=== PATIENT | female | born 1975 | race Two or more races ===

== ENCOUNTER 2017-10-21 21:06 | Inpatient (IN) | payer MEDICAID ==
[~2017-10-21] VITALS: Ht 162.6 cm; Wt 125.1 kg
[2017-10-21] MEDS ORDERED: IPRATROPIUM BROM 0.5 MG/2.5ML INH SOL NEB ONE (21:30)
[2017-10-21] MEDS ORDERED: NIFEdipine 10 MG CAP PO ONE (21:30)
[2017-10-21] MEDS ORDERED: ALBUTEROL SULF 2.5 MG/0.5ML(0.5%) NEB SOLN NEB ONE (21:30)
[2017-10-21] MEDS ORDERED: NIFEdipine 10 MG CAP ONE (21:31)
[2017-10-21 22:11] LABS: Basophils # (auto) 0.1 uL; Basophils % (auto) 0.6 % (0.0-2.0); Eosinophils # (auto) 0.2 uL; Eosinophils % (auto) 2.7 % (0.0-7.0); Hemoglobin 10.6 g/dL (12.2-16.2); Lymphocytes # (auto) 1.8 uL; Mean Corpuscular Hemoglobin 27.4 pg (28.0-32.0); Mean Corpuscular Hgb Conc. 32.2 g/dL (32.0-36.0); Mean Corpuscular Volume 85.1 fL (80.0-100.0); Monocytes # (auto) 0.5 uL; Monocytes % (auto) 5.6 % (0.0-12.0); Neutrophils # (auto) 6.1 uL; Neutrophils % (auto) 70.1 % (37.0-80.0); Nucleated Red Blood Cells % 0.1 %; Platelet Count (auto) 241 10^3/uL (140-450); Red Blood Cells 3.88 10^6/uL (4.0-5.20); Red Cell Distribution Width 16.3 % (11.8-14.3); White Blood Cell 8.7 10^3/uL (4.4-10.8)
[2017-10-21 22:26] LABS: Urine Bacteria FEW /hpf (None Seen); Urine Blood 1+ /uL (Negative); Urine Mucus FEW (None Seen); Urine Specific Gravity 1.023 (1.001-1.035); Urine WBC 2 /hpf (0 - 5)
[2017-10-21 22:29] LABS: Alanine Aminotransferase 45 U/L (13-56); Albumin 3.9 g/dL (3.4-5.0); Anion Gap 9 (5-15); Aspartate Aminotransferase 32 U/L (15-37); BUN/Creatinine Ratio 12.6; Blood Urea Nitrogen 16 mg/dL (7-18); Calcium 8.6 mg/dL (8.5-10.1); Carbon Dioxide 26 mmol/L (21-32); Chloride 108 mmol/L (98-107); GFR African American 59 mL/min; GFR Non-African American 49 mL/min; Glucose 99 mg/dL (74-106); Magnesium 2.1 mg/dL (1.6-2.6); Potassium 4.1 mmol/L (3.5-5.1); Sodium 143 mmol/L (136-145)
[2017-10-21 22:34] LABS: Alkaline Phosphatase 122 U/L (45-117); Bilirubin, Total 0.6 mg/dL (0.2-1.0)
[2017-10-22] MEDS ORDERED: PIPERACILLIN-TAZO 4.5GM 50 ML IV ONE (01:30)
[2017-10-22] MEDS ORDERED: SODIUM CHLORIDE 0.9% 1,000 ML IV ONE (01:30)
[2017-10-22] MEDS ORDERED: HYDROcodone-ACET 10/325MG TAB PO ONE (01:45)
[2017-10-22] MEDS ORDERED: NITROGLYCERIN 0.4 MG SL TAB SL PRN (03:00)
[2017-10-22] MEDS ORDERED: AZITHROMYCIN 500MG/ 250ML 250 ML IV ONE (03:00)
[2017-10-22] MEDS ORDERED: methylPREDNISolone SOD SUCC 125 MG/2 ML VL IV ONE (03:00)
[2017-10-22] MEDS ORDERED: MORPHINE SULFATE 4 MG/ML SYR/VIAL IV PRN ×2 (03:00→23:45)
[2017-10-22] MEDS ORDERED: METOPROLOL TARTRATE 25 MG TAB PO ONE (03:00)
[2017-10-22] MEDS ORDERED: TEMAZEPAM 15 MG CAP PO PRN (03:00)
[2017-10-22] MEDS ORDERED: diphenhdrAMINE HCL 50 MG/1 ML VL IV PRN (03:45)
[2017-10-22] MEDS ORDERED: diphenhdrAMINE HCL 50 MG/1 ML VL ONE (03:48)
[2017-10-22] MEDS: ALBUTEROL SULF 2.5 MG/0.5ML(0.5%) NEB SOLN NEB PRN ×3 (04:06→19:51)
[2017-10-22] MEDS: IPRATROPIUM BROM 0.5 MG/2.5ML INH SOL NEB PRN ×3 (04:07→19:51)
[2017-10-22] MEDS: ONDANSETRON HCL 4 MG/2 ML VIAL IV PRN ×3 (05:22→22:04)
[2017-10-22 05:32] LABS: Calcium 8.1 mg/dL (8.5-10.1); Potassium 3.6 mmol/L (3.5-5.1)
[2017-10-22 05:35] LABS: BUN/Creatinine Ratio 13.7
[2017-10-22] MEDS ORDERED: IOHEXOL 350 MG/ML 100ML IJ ONE (06:02)
[2017-10-22] MEDS: GABAPENTIN 300 MG CAP PO SCH ×3 (06:06→22:02)
[2017-10-22 07:22] VITALS: BP 146/89
[2017-10-22] MEDS: HYDROcodone-ACET 5/325MG TAB PO PRN ×2 (07:58→20:32)
[2017-10-22] MEDS: cefTRIAXone 1GM/10ml IVPUSH 10 ML IV SCH (09:00)
[2017-10-22] MEDS: ASPirin 81 mg TAB PO SCH (10:12)
[2017-10-22] MEDS: FAMOTIDINE 20 MG TAB PO SCH ×2 (10:12→22:03)
[2017-10-22] MEDS: ENOXAPARIN SOD 40 MG/0.4 ML SYRINGE SC SCH (10:12)
[2017-10-22] MEDS: METOPROLOL TARTRATE 25 MG TAB PO SCH ×2 (10:12→22:03)
[2017-10-22 17:21] VITALS: BP 141/86
[2017-10-22 18:22] VITALS: BP 141/86
[2017-10-22] MEDS: ATORVASTATIN 20 MG TAB PO SCH (22:02)
[2017-10-22] MEDS: AZITHROMYCIN 500MG/ 250ML 250 ML IV SCH (22:05)
[2017-10-22 22:36] VITALS: BP 133/79
[2017-10-22] MEDS ORDERED: GABA300C10 PO (23:00)
[2017-10-22] MEDS ORDERED: TEMA15CA91 PO (23:00)
[2017-10-22] MEDS ORDERED: ASPI-498 OR (23:00)
[2017-10-22] MEDS ORDERED: ATOR20TA50 PO (23:00)
[2017-10-22] MEDS ORDERED: HYDR-4683 PO (23:00)
[2017-10-22] MEDS ORDERED: NAP500T PO (23:00)
[2017-10-22] MEDS ORDERED: CYCL1TAB18 PO (23:00)
[2017-10-22] MEDS ORDERED: SERT-135 PO (23:23)
[2017-10-23] VITALS (42 sets, daily range): BP systolic 87–148; BP diastolic 44–79
[2017-10-23] MEDS: ALBUTEROL SULF 2.5 MG/0.5ML(0.5%) NEB SOLN NEB PRN ×4 (03:41→22:29)
[2017-10-23] MEDS: IPRATROPIUM BROM 0.5 MG/2.5ML INH SOL NEB PRN ×4 (03:41→22:29)
[2017-10-23] MEDS: GABAPENTIN 300 MG CAP PO SCH ×3 (05:34→22:27)
[2017-10-23 06:03] LABS: Basophils # (auto) 0 uL; Basophils % (auto) 0.1 % (0.0-2.0); Eosinophils # (auto) 0 uL; Hematocrit 28.8 % (36.0-46.0); Hemoglobin 9.3 g/dL (12.2-16.2); Lymphocytes # (auto) 1.3 uL; Lymphocytes % (auto) 9.9 % (10.0-50.0); Mean Corpuscular Hemoglobin 27.7 pg (28.0-32.0); Mean Corpuscular Hgb Conc. 32.3 g/dL (32.0-36.0); Mean Corpuscular Volume 85.8 fL (80.0-100.0); Monocytes # (auto) 0.9 uL; Monocytes % (auto) 6.9 % (0.0-12.0); Neutrophils # (auto) 10.9 uL; Neutrophils % (auto) 83.1 % (37.0-80.0); Platelet Count (auto) 217 10^3/uL (140-450); Red Blood Cells 3.36 10^6/uL (4.0-5.20); Red Cell Distribution Width 16.5 % (11.8-14.3); White Blood Cell 13.1 10^3/uL (4.4-10.8)
[2017-10-23 06:26] LABS: Albumin 3.4 g/dL (3.4-5.0); BUN/Creatinine Ratio 17.6; Bilirubin, Total 0.5 mg/dL (0.2-1.0); Calcium 8.3 mg/dL (8.5-10.1); Potassium 4.3 mmol/L (3.5-5.1); Total Protein 7.1 g/dL (6.4-8.2)
[2017-10-23] MEDS: cefTRIAXone 1GM/10ml IVPUSH 10 ML IV SCH (09:05)
[2017-10-23] MEDS: METOPROLOL TARTRATE 25 MG TAB PO SCH ×3 (09:33→22:27)
[2017-10-23] MEDS: ASPirin 81 mg TAB PO SCH (09:33)
[2017-10-23] MEDS: FAMOTIDINE 20 MG TAB PO SCH ×2 (09:34→22:28)
[2017-10-23] MEDS: HYDROcodone-ACET 5/325MG TAB PO PRN (09:34)
[2017-10-23] MEDS: ENOXAPARIN SOD 40 MG/0.4 ML SYRINGE SC SCH (09:35)
[2017-10-23] MEDS ORDERED: ENOXAPARIN SOD 150 MG/1 ML SYRINGE SC ONE (12:15)
[2017-10-23] MEDS ORDERED: ENOXAPARIN SOD 100 MG/1 ML SYRINGE SC ONE (12:30)
[2017-10-23] MEDS ORDERED: ALBUTEROL SULF 2.5 MG/0.5ML(0.5%) NEB SOLN ONE (15:29)
[2017-10-23] MEDS ORDERED: PROPOFOL 100 ML IV ONE (15:41)
[2017-10-23] MEDS ORDERED: MIDAZOLAM DRIP 50 mg/50mL 50 ML IV ONE (16:01)
[2017-10-23] MEDS ORDERED: FUROSEMIDE 40 MG/4 ML VIAL IV ONE (16:15)
[2017-10-23] MEDS ORDERED: FUROSEMIDE 40 MG/4 ML VIAL ONE (16:33)
[2017-10-23] MEDS: PROPOFOL 100 ML IV SCH ×2 (17:16→22:32)
[2017-10-23] MEDS: MIDAZOLAM DRIP 50 mg/50mL 50 ML IV SCH (17:17)
[2017-10-23 17:32] LABS: Urine Bacteria NONE SEEN /hpf (None Seen); Urine Blood TRACE /uL (Negative); Urine Mucus FEW (None Seen); Urine Specific Gravity 1.018 (1.001-1.035); Urine WBC 1 /hpf (0 - 5)
[2017-10-23] MEDS ORDERED: VANCOMYCIN PER PHARMACY 0 MG IV SCH (18:30)
[2017-10-23] MEDS: fentaNYL Drip 2500mCg/250mlNS 250 ML IV SCH (18:33)
[2017-10-23] MEDS ORDERED: TOBRAMYCIN PER PHARMACY 0 ML IV SCH (19:15)
[2017-10-23] MEDS ORDERED: MEROPENEM 1gm/20ml IVPUSH 20 ML IV SCH (22:00)
[2017-10-23] MEDS ORDERED: methylPREDNISolone SOD SUCC 40 MG/ML VL IV SCH (22:00)
[2017-10-23] MEDS: MEROPENEM 1gm/20ml IVPUSH 20 ML IV SCH (22:26)
[2017-10-23] MEDS: AZITHROMYCIN 500MG/ 250ML 250 ML IV SCH (22:26)
[2017-10-23] MEDS: VANCOMYCIN 1,500 MG in D5W 5% 250 ML IV SCH (22:27)
[2017-10-23] MEDS: ATORVASTATIN 20 MG TAB PO SCH (22:27)
[2017-10-23] MEDS: SERTRALINE HCL 50 MG TAB PO SCH (22:28)
[2017-10-24] VITALS (104 sets, daily range): BP systolic 81–177; BP diastolic 41–94
[2017-10-24] MEDS: PROPOFOL 100 ML IV SCH ×6 (00:10→21:17)
[2017-10-24] MEDS: MIDAZOLAM DRIP 50 mg/50mL 50 ML IV SCH ×6 (00:11→23:38)
[2017-10-24] MEDS: D5W 5% IV SCH (00:35)
[2017-10-24] MEDS: TOBRAMYCIN IV SCH (00:35)
[2017-10-24] MEDS: NOREPINEPHRINE 8 MG/250ML KIT 250 ML IV SCH (00:36)
[2017-10-24] MEDS: IPRATROPIUM BROM 0.5 MG/2.5ML INH SOL NEB PRN ×3 (02:19→23:58)
[2017-10-24] MEDS: ALBUTEROL SULF 2.5 MG/0.5ML(0.5%) NEB SOLN NEB PRN ×3 (02:19→23:58)
[2017-10-24 03:56] LABS: Basophils # (auto) 0 uL; Basophils % (auto) 0.4 % (0.0-2.0); Eosinophils # (auto) 0.3 uL; Eosinophils % (auto) 3.4 % (0.0-7.0); Hematocrit 27.7 % (36.0-46.0); Hemoglobin 8.9 g/dL (12.2-16.2); Lymphocytes # (auto) 1.8 uL; Lymphocytes % (auto) 17.9 % (10.0-50.0); Mean Corpuscular Hemoglobin 27.6 pg (28.0-32.0); Mean Corpuscular Hgb Conc. 32.2 g/dL (32.0-36.0); Mean Corpuscular Volume 85.8 fL (80.0-100.0); Monocytes # (auto) 0.4 uL; Monocytes % (auto) 4.3 % (0.0-12.0); Neutrophils # (auto) 7.5 uL; Nucleated Red Blood Cells % 0.1 %; Platelet Count (auto) 164 10^3/uL (140-450); Red Blood Cells 3.23 10^6/uL (4.0-5.20); White Blood Cell 10.1 10^3/uL (4.4-10.8)
[2017-10-24 04:32] LABS: Albumin 3.1 g/dL (3.4-5.0); BUN/Creatinine Ratio 17.4; Bilirubin, Total 0.9 mg/dL (0.2-1.0); Calcium 7.6 mg/dL (8.5-10.1); Potassium 3.8 mmol/L (3.5-5.1); Total Protein 6.8 g/dL (6.4-8.2)
[2017-10-24] MEDS: MEROPENEM 1gm/20ml IVPUSH 20 ML IV SCH ×3 (05:08→21:15)
[2017-10-24] MEDS: GABAPENTIN 300 MG CAP PO SCH ×3 (06:32→21:16)
[2017-10-24] MEDS: ENOXAPARIN SOD 40 MG/0.4 ML SYRINGE SC SCH (10:00)
[2017-10-24] MEDS: FAMOTIDINE 20 MG TAB PO SCH ×2 (10:00→21:16)
[2017-10-24] MEDS: ASPirin 81 mg TAB PO SCH (10:00)
[2017-10-24] MEDS ORDERED: Nutren 1.0/Fiber 8 ounces NG SCH (10:00)
[2017-10-24] MEDS: METOPROLOL TARTRATE 25 MG TAB PO SCH ×2 (10:00→21:15)
[2017-10-24] MEDS: VANCOMYCIN 1,500 MG in D5W 5% 250 ML IV SCH (12:00)
[2017-10-24] MEDS ORDERED: Nutren Pulmonary 1 Liter GT SCH (12:30)
[2017-10-24] MEDS: fentaNYL Drip 2500mCg/250mlNS 250 ML IV SCH (16:39)
[2017-10-24] MEDS: FREE WATER GT SCH (18:00)
[2017-10-24] MEDS: AZITHROMYCIN 500MG/ 250ML 250 ML IV SCH (18:41)
[2017-10-24] MEDS: ATORVASTATIN 20 MG TAB PO SCH (21:15)
[2017-10-24] MEDS: SERTRALINE HCL 50 MG TAB PO SCH (21:16)
[2017-10-25] VITALS (87 sets, daily range): BP systolic 93–134; BP diastolic 48–84
[2017-10-25] MEDS: FREE WATER GT SCH ×4 (01:02→18:00)
[2017-10-25] MEDS: TOBRAMYCIN IV SCH (01:03)
[2017-10-25] MEDS: D5W 5% IV SCH (01:03)
[2017-10-25] MEDS: PROPOFOL 100 ML IV SCH ×5 (02:06→19:47)
[2017-10-25] MEDS: NOREPINEPHRINE 8 MG/250ML KIT 250 ML IV SCH (02:06)
[2017-10-25 03:47] LABS: Basophils # (auto) 0 uL; Basophils % (auto) 0.4 % (0.0-2.0); Eosinophils # (auto) 0.8 uL; Eosinophils % (auto) 6.2 % (0.0-7.0); Hematocrit 26.2 % (36.0-46.0); Hemoglobin 8.5 g/dL (12.2-16.2); Lymphocytes # (auto) 1.9 uL; Lymphocytes % (auto) 15.8 % (10.0-50.0); Mean Corpuscular Hemoglobin 27.3 pg (28.0-32.0); Mean Corpuscular Hgb Conc. 32.6 g/dL (32.0-36.0); Mean Corpuscular Volume 83.7 fL (80.0-100.0); Monocytes # (auto) 0.4 uL; Monocytes % (auto) 3.5 % (0.0-12.0); Neutrophils % (auto) 74.1 % (37.0-80.0); Platelet Count (auto) 158 10^3/uL (140-450); Red Blood Cells 3.13 10^6/uL (4.0-5.20); Red Cell Distribution Width 16.4 % (11.8-14.3); White Blood Cell 12.2 10^3/uL (4.4-10.8)
[2017-10-25 03:52] LABS: Albumin 2.8 g/dL (3.4-5.0); BUN/Creatinine Ratio 14.5; Potassium 3.5 mmol/L (3.5-5.1)
[2017-10-25 03:55] LABS: Bilirubin, Total 1.4 mg/dL (0.2-1.0); Total Protein 6.7 g/dL (6.4-8.2)
[2017-10-25] MEDS: MIDAZOLAM DRIP 50 mg/50mL 50 ML IV SCH ×3 (06:28→16:43)
[2017-10-25] MEDS: MEROPENEM 1gm/20ml IVPUSH 20 ML IV SCH ×3 (06:31→22:08)
[2017-10-25] MEDS: GABAPENTIN 300 MG CAP PO SCH ×3 (06:31→22:09)
[2017-10-25] MEDS: ACETAMINOPHEN 325 MG TAB PO PRN (06:33)
[2017-10-25] MEDS ORDERED: VANCOMYCIN 1,500 MG in D5W 5% 250 ML IV SCH (10:00)
[2017-10-25] MEDS ORDERED: FUROSEMIDE 40 MG/4 ML VIAL IV ONE (10:30)
[2017-10-25] MEDS ORDERED: TPN PER PHARMACY 0 ML IV SCH (10:45)
[2017-10-25] MEDS ORDERED: SODIUM BICARBONATE 8.4% INJ 50ML SYRINGE ONE ×2 (10:55→12:18)
[2017-10-25] MEDS: ASPirin 81 mg TAB PO SCH (10:56)
[2017-10-25] MEDS: METOPROLOL TARTRATE 25 MG TAB PO SCH ×2 (10:57→22:09)
[2017-10-25] MEDS: FAMOTIDINE 20 MG TAB PO SCH ×2 (10:57→22:09)
[2017-10-25] MEDS: ENOXAPARIN SOD 40 MG/0.4 ML SYRINGE SC SCH (10:57)
[2017-10-25 11:11] LABS: Phosphorus 2.6 mg/dL (2.5-4.90)
[2017-10-25] MEDS ORDERED: DEXTROSE (50%) 50ML SYRG IV SCH (12:30)
[2017-10-25] MEDS: AZITHROMYCIN 500MG/ 250ML 250 ML IV SCH (17:31)
[2017-10-25] MEDS: fentaNYL Drip 2500mCg/250mlNS 250 ML IV SCH (17:46)
[2017-10-25] MEDS: InsuLIN REG 1unit/0.01ml Soln (100units/ml) SC SCH (18:00)
[2017-10-25] MEDS: ACCU-CHEK COMFORT CURVE STRIP VI SCH (18:25)
[2017-10-25] MEDS ORDERED: TPN PER PHARMACY IV NR ×8 (20:00)
[2017-10-25] MEDS: ATORVASTATIN 20 MG TAB PO SCH (22:09)
[2017-10-25] MEDS: SERTRALINE HCL 50 MG TAB PO SCH (22:10)
[2017-10-25] MEDS: VANCOMYCIN 1GM/250ML 250 ML IV SCH (23:59)
[2017-10-26] VITALS (100 sets, daily range): BP systolic 87–129; BP diastolic 44–83
[2017-10-26] MEDS: D5W 5% IV SCH ×2
[2017-10-26] MEDS: TOBRAMYCIN IV SCH ×2
[2017-10-26] MEDS: InsuLIN REG 1unit/0.01ml Soln (100units/ml) SC SCH ×4 (03:43→18:28)
[2017-10-26] MEDS: ACCU-CHEK COMFORT CURVE STRIP VI SCH ×4 (03:44→18:28)
[2017-10-26 04:50] LABS: Basophils # (auto) 0.1 uL; Basophils % (auto) 0.4 % (0.0-2.0); Eosinophils # (auto) 0.8 uL; Hematocrit 25.9 % (36.0-46.0); Hemoglobin 8.5 g/dL (12.2-16.2); Lymphocytes # (auto) 1.9 uL; Lymphocytes % (auto) 15.7 % (10.0-50.0); Mean Corpuscular Hemoglobin 27.2 pg (28.0-32.0); Mean Corpuscular Hgb Conc. 32.7 g/dL (32.0-36.0); Mean Corpuscular Volume 83.1 fL (80.0-100.0); Monocytes # (auto) 0.5 uL; Monocytes % (auto) 4.4 % (0.0-12.0); Neutrophils # (auto) 8.6 uL; Neutrophils % (auto) 72.5 % (37.0-80.0); Nucleated Red Blood Cells % 0.1 %; Platelet Count (auto) 165 10^3/uL (140-450); Red Blood Cells 3.11 10^6/uL (4.0-5.20); Red Cell Distribution Width 16.2 % (11.8-14.3); White Blood Cell 11.9 10^3/uL (4.4-10.8)
[2017-10-26 05:08] LABS: Albumin 2.6 g/dL (3.4-5.0); BUN/Creatinine Ratio 12.5; Bilirubin, Total 0.6 mg/dL (0.2-1.0); Calcium 7.9 mg/dL (8.5-10.1); Magnesium 2.7 mg/dL (1.6-2.6); Phosphorus 3.3 mg/dL (2.5-4.90); Potassium 3.3 mmol/L (3.5-5.1); Pre Albumin 11.9 mg/dL (20.0-40.0); Total Protein 7.1 g/dL (6.4-8.2)
[2017-10-26] MEDS: FREE WATER GT SCH ×4 (06:00→18:28)
[2017-10-26] MEDS: MEROPENEM 1gm/20ml IVPUSH 20 ML IV SCH ×3 (06:30→20:54)
[2017-10-26] MEDS: GABAPENTIN 300 MG CAP PO SCH ×3 (06:52→22:13)
[2017-10-26] MEDS: NOREPINEPHRINE 8 MG/250ML KIT 250 ML IV SCH ×2 (06:53→19:35)
[2017-10-26] MEDS: METOPROLOL TARTRATE 25 MG TAB PO SCH (10:00)
[2017-10-26] MEDS: ENOXAPARIN SOD 40 MG/0.4 ML SYRINGE SC SCH (10:25)
[2017-10-26] MEDS: MIDAZOLAM DRIP 50 mg/50mL 50 ML IV SCH ×4 (10:27→20:07)
[2017-10-26] MEDS: ASPirin 81 mg TAB PO SCH (10:27)
[2017-10-26] MEDS: FAMOTIDINE 20 MG TAB PO SCH ×2 (10:27→22:13)
[2017-10-26] MEDS: PROPOFOL 100 ML IV SCH ×5 (10:28→22:58)
[2017-10-26] MEDS ORDERED: POTASSIUM CHL 20MEQ/100ML 100 ML IV ONE (11:00)
[2017-10-26] MEDS: AZITHROMYCIN 500MG/ 250ML 250 ML IV SCH (18:28)
[2017-10-26] MEDS ORDERED: TPN PER PHARMACY IV NR ×9 (20:00)
[2017-10-26] MEDS: fentaNYL Drip 2500mCg/250mlNS 250 ML IV SCH (20:06)
[2017-10-26] MEDS: ATORVASTATIN 20 MG TAB PO SCH (22:13)
[2017-10-26] MEDS: SERTRALINE HCL 50 MG TAB PO SCH (22:13)
[2017-10-26] MEDS: VANCOMYCIN 1GM/250ML 250 ML IV SCH (22:36)
[2017-10-27] VITALS (105 sets, daily range): BP systolic 85–149; BP diastolic 44–89
[2017-10-27] MEDS: FREE WATER GT SCH ×5 (00:30→23:36)
[2017-10-27] MEDS: TOBRAMYCIN IV SCH (00:30)
[2017-10-27] MEDS: ACCU-CHEK COMFORT CURVE STRIP VI SCH ×4 (00:30→18:30)
[2017-10-27] MEDS: D5W 5% IV SCH (00:30)
[2017-10-27] MEDS: InsuLIN REG 1unit/0.01ml Soln (100units/ml) SC SCH ×4 (00:37→19:32)
[2017-10-27] MEDS: MIDAZOLAM DRIP 50 mg/50mL 50 ML IV SCH ×4 (00:42→19:00)
[2017-10-27] MEDS: PROPOFOL 100 ML IV SCH ×8 (02:06→21:38)
[2017-10-27] MEDS: MEROPENEM 1gm/20ml IVPUSH 20 ML IV SCH ×3 (04:48→21:37)
[2017-10-27] MEDS: GABAPENTIN 300 MG CAP PO SCH ×3 (05:41→21:38)
[2017-10-27 06:12] LABS: Basophils # (auto) 0.1 uL; Eosinophils # (auto) 0.8 uL; Nucleated Red Blood Cells % 0.1 %
[2017-10-27 06:14] LABS: Basophils % (auto) 0.7 % (0.0-2.0); Eosinophils % (auto) 8.6 % (0.0-7.0); Hematocrit 25.2 % (36.0-46.0); Lymphocytes # (auto) 1.4 uL; Lymphocytes % (auto) 15.1 % (10.0-50.0); Mean Corpuscular Hemoglobin 27.6 pg (28.0-32.0); Mean Corpuscular Hgb Conc. 33.1 g/dL (32.0-36.0); Mean Corpuscular Volume 83.5 fL (80.0-100.0); Monocytes # (auto) 0.7 uL; Monocytes % (auto) 7.1 % (0.0-12.0); Neutrophils # (auto) 6.5 uL; Neutrophils % (auto) 68.5 % (37.0-80.0); Red Blood Cells 3.02 10^6/uL (4.0-5.20); Red Cell Distribution Width 16.4 % (11.8-14.3); White Blood Cell 9.5 10^3/uL (4.4-10.8)
[2017-10-27 06:19] LABS: Hemoglobin 8.4 g/dL (12.2-16.2)
[2017-10-27 06:20] LABS: Platelet Count (auto) 194 10^3/uL (140-450)
[2017-10-27 06:36] LABS: Albumin 2.4 g/dL (3.4-5.0); BUN/Creatinine Ratio 14.9; Bilirubin, Total 0.4 mg/dL (0.2-1.0); Calcium 7.9 mg/dL (8.5-10.1); Magnesium 2.7 mg/dL (1.6-2.6); Phosphorus 3.7 mg/dL (2.5-4.90); Potassium 3.5 mmol/L (3.5-5.1); Total Protein 6.8 g/dL (6.4-8.2)
[2017-10-27] MEDS ORDERED: FUROSEMIDE 40 MG/4 ML VIAL IV ONE (09:15)
[2017-10-27] MEDS: ENOXAPARIN SOD 40 MG/0.4 ML SYRINGE SC SCH (10:31)
[2017-10-27] MEDS: FAMOTIDINE 20 MG TAB PO SCH ×2 (10:31→21:38)
[2017-10-27] MEDS: ASPirin 81 mg TAB PO SCH (10:31)
[2017-10-27] MEDS: NOREPINEPHRINE 8 MG/250ML KIT 250 ML IV SCH (11:39)
[2017-10-27] MEDS: fentaNYL Drip 2500mCg/250mlNS 250 ML IV SCH (17:40)
[2017-10-27] MEDS: AZITHROMYCIN 500MG/ 250ML 250 ML IV SCH (19:32)
[2017-10-27] MEDS ORDERED: TPN PER PHARMACY IV NR ×9 (20:00)
[2017-10-27] MEDS: SERTRALINE HCL 50 MG TAB PO SCH (21:38)
[2017-10-27] MEDS: ATORVASTATIN 20 MG TAB PO SCH (21:38)
[2017-10-27] MEDS: VANCOMYCIN 1GM/250ML 250 ML IV SCH (23:29)
[2017-10-28] VITALS (108 sets, daily range): BP systolic 85–147; BP diastolic 45–108
[2017-10-28] MEDS: PROPOFOL 100 ML IV SCH ×7 (00:01→23:38)
[2017-10-28] MEDS: D5W 5% IV SCH ×2 (00:02→23:38)
[2017-10-28] MEDS: TOBRAMYCIN IV SCH ×2 (00:02→23:38)
[2017-10-28] MEDS: ACCU-CHEK COMFORT CURVE STRIP VI SCH ×5 (00:19→23:39)
[2017-10-28] MEDS: InsuLIN REG 1unit/0.01ml Soln (100units/ml) SC SCH ×5 (00:19→23:38)
[2017-10-28] MEDS: MIDAZOLAM DRIP 50 mg/50mL 50 ML IV SCH ×4 (00:20→21:17)
[2017-10-28 03:58] LABS: Hematocrit 27.3 % (36.0-46.0); Hemoglobin 9.1 g/dL (12.2-16.2); Mean Corpuscular Hemoglobin 27.3 pg (28.0-32.0); Mean Corpuscular Hgb Conc. 33.2 g/dL (32.0-36.0); Mean Corpuscular Volume 82.3 fL (80.0-100.0); Platelet Count (auto) 202 10^3/uL (140-450); Red Blood Cells 3.31 10^6/uL (4.0-5.20); Red Cell Distribution Width 16.2 % (11.8-14.3); White Blood Cell 10.8 10^3/uL (4.4-10.8)
[2017-10-28 04:12] LABS: Albumin 2.6 g/dL (3.4-5.0); BUN/Creatinine Ratio 15.3; Bilirubin, Total 0.3 mg/dL (0.2-1.0); Magnesium 2.4 mg/dL (1.6-2.6); Phosphorus 2.9 mg/dL (2.5-4.90); Potassium 3.3 mmol/L (3.5-5.1); Total Protein 7.2 g/dL (6.4-8.2)
[2017-10-28 04:17] LABS: Basophils % (manual) 0 (0.0-2.0); Blast Cells 0; Myelocytes % 0; Promyelocytes % 0; Reactive Lymphocytes 0
[2017-10-28 05:18] LABS: Band Neutrophils % (manual) 4; Eosinophils % (manual) 7 (0-7); Lymphocytes % (manual) 17 (10.0-50.0); Metamyelocytes % 4; Monocytes % (manual) 5 (0-12)
[2017-10-28] MEDS: MEROPENEM 1gm/20ml IVPUSH 20 ML IV SCH ×3 (05:19→21:17)
[2017-10-28] MEDS: FREE WATER GT SCH ×4 (05:47→23:39)
[2017-10-28] MEDS: GABAPENTIN 300 MG CAP PO SCH ×3 (05:47→21:21)
[2017-10-28] MEDS: ENOXAPARIN SOD 40 MG/0.4 ML SYRINGE SC SCH (10:35)
[2017-10-28] MEDS: ASPirin 81 mg TAB PO SCH (10:36)
[2017-10-28] MEDS: FAMOTIDINE 20 MG TAB PO SCH ×2 (10:36→21:21)
[2017-10-28] MEDS: NOREPINEPHRINE 8 MG/250ML KIT 250 ML IV SCH (11:23)
[2017-10-28] MEDS ORDERED: SODIUM CHLORIDE 0.9% 500 ML IV ONE (13:30)
[2017-10-28] MEDS ORDERED: POTASSIUM CHL 20MEQ/100ML 100 ML IV ONE (13:30)
[2017-10-28] MEDS: AZITHROMYCIN 500MG/ 250ML 250 ML IV SCH (17:31)
[2017-10-28] MEDS: fentaNYL Drip 2500mCg/250mlNS 250 ML IV SCH (18:28)
[2017-10-28] MEDS: VANCOMYCIN 1,250 MG in D5W 5% 250 ML IV SCH (19:52)
[2017-10-28] MEDS ORDERED: TPN PER PHARMACY IV NR ×9 (20:00)
[2017-10-28] MEDS ORDERED: POTASSIUM CHLORIDE IV NR ×9 (20:00)
[2017-10-28] MEDS ORDERED: [UNRECOGNIZED DRUG - OTHER] IV NR ×9 (20:00)
[2017-10-28] MEDS ORDERED: SODIUM ACETATE IV NR ×9 (20:00)
[2017-10-28] MEDS ORDERED: POTASSIUM PHOSPHATE IV NR ×9 (20:00)
[2017-10-28] MEDS: ATORVASTATIN 20 MG TAB PO SCH (21:21)
[2017-10-28] MEDS: SERTRALINE HCL 50 MG TAB PO SCH (21:22)
[2017-10-29] VITALS (93 sets, daily range): BP systolic 94–149; BP diastolic 50–86
[2017-10-29 04:18] LABS: Hematocrit 27.9 % (36.0-46.0); Mean Corpuscular Hemoglobin 26.5 pg (28.0-32.0)
[2017-10-29 04:21] LABS: Hemoglobin 8.8 g/dL (12.2-16.2); Mean Corpuscular Hgb Conc. 31.7 g/dL (32.0-36.0); Mean Corpuscular Volume 83.6 fL (80.0-100.0); Platelet Count (auto) 208 10^3/uL (140-450); Red Blood Cells 3.33 10^6/uL (4.0-5.20); Red Cell Distribution Width 16.7 % (11.8-14.3); White Blood Cell 14.6 10^3/uL (4.4-10.8)
[2017-10-29 04:31] LABS: Albumin 2.6 g/dL (3.4-5.0); Bilirubin, Total 0.3 mg/dL (0.2-1.0); Calcium 8.2 mg/dL (8.5-10.1); Magnesium 2.3 mg/dL (1.6-2.6); Phosphorus 4.7 mg/dL (2.5-4.90); Potassium 4.6 mmol/L (3.5-5.1); Pre Albumin 20.3 mg/dL (20.0-40.0); Total Protein 7.3 g/dL (6.4-8.2)
[2017-10-29 04:38] LABS: Basophils % (manual) 0 (0.0-2.0); Blast Cells 0; Myelocytes % 0; Promyelocytes % 0; Reactive Lymphocytes 0
[2017-10-29] MEDS: PROPOFOL 100 ML IV SCH ×2 (05:05→08:30)
[2017-10-29] MEDS: MEROPENEM 1gm/20ml IVPUSH 20 ML IV SCH ×3 (05:05→20:26)
[2017-10-29 05:08] LABS: Band Neutrophils % (manual) 3; Eosinophils % (manual) 7 (0-7); Lymphocytes % (manual) 16 (10.0-50.0); Metamyelocytes % 5; Monocytes % (manual) 11 (0-12)
[2017-10-29] MEDS: FREE WATER GT SCH ×3 (05:56→18:00)
[2017-10-29] MEDS: InsuLIN REG 1unit/0.01ml Soln (100units/ml) SC SCH ×3 (05:57→18:00)
[2017-10-29] MEDS: ACCU-CHEK COMFORT CURVE STRIP VI SCH ×3 (05:57→18:00)
[2017-10-29] MEDS: GABAPENTIN 300 MG CAP PO SCH ×3 (05:57→22:07)
[2017-10-29] MEDS: ASPirin 81 mg TAB PO SCH (09:44)
[2017-10-29] MEDS: FAMOTIDINE 20 MG TAB PO SCH ×2 (09:44→22:07)
[2017-10-29] MEDS: ENOXAPARIN SOD 40 MG/0.4 ML SYRINGE SC SCH (09:44)
[2017-10-29] MEDS ORDERED: FUROSEMIDE 20 MG/2 ML VIAL IV ONE (10:30)
[2017-10-29] MEDS: VANCOMYCIN 1,250 MG in D5W 5% 250 ML IV SCH (12:10)
[2017-10-29] MEDS ORDERED: SODIUM CHLORIDE 0.9% 500 ML IV ONE (13:15)
[2017-10-29] MEDS: AZITHROMYCIN 500MG/ 250ML 250 ML IV SCH (17:38)
[2017-10-29] MEDS: fentaNYL Drip 2500mCg/250mlNS 250 ML IV SCH (17:40)
[2017-10-29] MEDS: NOREPINEPHRINE 8 MG/250ML KIT 250 ML IV SCH (19:35)
[2017-10-29] MEDS ORDERED: TPN PER PHARMACY IV NR ×8 (20:00)
[2017-10-29] MEDS: SERTRALINE HCL 50 MG TAB PO SCH (22:07)
[2017-10-29] MEDS: ATORVASTATIN 20 MG TAB PO SCH (22:07)
[2017-10-29] MEDS: ALBUTEROL SULF 2.5 MG/0.5ML(0.5%) NEB SOLN NEB PRN (22:31)
[2017-10-29] MEDS: IPRATROPIUM BROM 0.5 MG/2.5ML INH SOL NEB PRN (22:31)
[2017-10-30] VITALS (42 sets, daily range): BP systolic 113–156; BP diastolic 48–94
[2017-10-30] MEDS: ACCU-CHEK COMFORT CURVE STRIP VI SCH ×4 (00:12→18:50)
[2017-10-30] MEDS: TOBRAMYCIN IV SCH (00:12)
[2017-10-30] MEDS: D5W 5% IV SCH (00:12)
[2017-10-30] MEDS: InsuLIN REG 1unit/0.01ml Soln (100units/ml) SC SCH ×4 (00:13→18:50)
[2017-10-30] MEDS: FREE WATER GT SCH ×4 (00:58→18:28)
[2017-10-30 03:55] LABS: White Blood Cell 15.8 10^3/uL (4.4-10.8)
[2017-10-30 03:59] LABS: Hematocrit 29.1 % (36.0-46.0); Hemoglobin 9.3 g/dL (12.2-16.2); Mean Corpuscular Hemoglobin 26.6 pg (28.0-32.0); Platelet Count (auto) 199 10^3/uL (140-450); Red Cell Distribution Width 16.7 % (11.8-14.3)
[2017-10-30 04:05] LABS: Albumin 2.8 g/dL (3.4-5.0); Calcium 8.5 mg/dL (8.5-10.1); Magnesium 2.1 mg/dL (1.6-2.6); Potassium 4.2 mmol/L (3.5-5.1)
[2017-10-30 04:08] LABS: BUN/Creatinine Ratio 20.5; Basophils % (manual) 0 (0.0-2.0); Blast Cells 0; Promyelocytes % 0; Reactive Lymphocytes 0
[2017-10-30 04:11] LABS: Bilirubin, Total 0.5 mg/dL (0.2-1.0); Phosphorus 3.6 mg/dL (2.5-4.90); Total Protein 7.6 g/dL (6.4-8.2)
[2017-10-30 04:38] LABS: Band Neutrophils % (manual) 2; Eosinophils % (manual) 9 (0-7); Lymphocytes % (manual) 14 (10.0-50.0); Metamyelocytes % 7; Monocytes % (manual) 5 (0-12); Myelocytes % 2
[2017-10-30] MEDS: MEROPENEM 1gm/20ml IVPUSH 20 ML IV SCH ×3 (04:51→21:18)
[2017-10-30] MEDS: VANCOMYCIN 1,250 MG in D5W 5% 250 ML IV SCH (06:16)
[2017-10-30] MEDS: GABAPENTIN 300 MG CAP PO SCH ×3 (06:16→22:39)
[2017-10-30] MEDS: IPRATROPIUM BROM 0.5 MG/2.5ML INH SOL NEB PRN (06:28)
[2017-10-30] MEDS: ALBUTEROL SULF 2.5 MG/0.5ML(0.5%) NEB SOLN NEB PRN (06:28)
[2017-10-30 09:35] LABS: INR 1.05 (0.9-1.15); Prothrombin Time 11.5 sec (9.37-12.3)
[2017-10-30] MEDS: FAMOTIDINE 20 MG TAB PO SCH ×2 (11:00→22:39)
[2017-10-30] MEDS: ENOXAPARIN SOD 40 MG/0.4 ML SYRINGE SC SCH (11:00)
[2017-10-30] MEDS: ASPirin 81 mg TAB PO SCH (11:00)
[2017-10-30] MEDS ORDERED: LIDOCAINE 1% HCL (LOCAL ANESTH.) INJ 20ML MDV ID ONE (13:15)
[2017-10-30] MEDS ORDERED: DEXTROSE (50%) 50ML SYRG IV PRN (14:30)
[2017-10-30] MEDS: PROPOFOL 100 ML IV SCH (16:00)
[2017-10-30] MEDS: MIDAZOLAM DRIP 50 mg/50mL 50 ML IV SCH (16:00)
[2017-10-30] MEDS: fentaNYL Drip 2500mCg/250mlNS 250 ML IV SCH (17:00)
[2017-10-30] MEDS: AZITHROMYCIN 500MG/ 250ML 250 ML IV SCH (18:28)
[2017-10-30] MEDS: NOREPINEPHRINE 8 MG/250ML KIT 250 ML IV SCH (19:35)
[2017-10-30] MEDS ORDERED: TPN PER PHARMACY IV NR ×9 (20:00)
[2017-10-30] MEDS: ATORVASTATIN 20 MG TAB PO SCH (22:39)
[2017-10-30] MEDS: SERTRALINE HCL 50 MG TAB PO SCH (22:39)
[2017-10-30] MEDS: SODIUM CHLOR 0.9% PF (SALINE LOCK) 10ML VIAL IV SCH (22:40)
[2017-10-31] VITALS (56 sets, daily range): BP systolic 129–155; BP diastolic 75–100
[2017-10-31] MEDS: ACCU-CHEK COMFORT CURVE STRIP VI SCH ×4 (00:03→17:24)
[2017-10-31] MEDS: FREE WATER GT SCH ×4 (00:03→17:24)
[2017-10-31] MEDS: InsuLIN REG 1unit/0.01ml Soln (100units/ml) SC SCH ×4 (00:05→17:24)
[2017-10-31] MEDS: VANCOMYCIN 1,250 MG in D5W 5% 250 ML IV SCH ×2 (00:09→12:38)
[2017-10-31 04:03] LABS: Hemoglobin 8.7 g/dL (12.2-16.2)
[2017-10-31 04:07] LABS: Hematocrit 27.2 % (36.0-46.0); Mean Corpuscular Hemoglobin 26.6 pg (28.0-32.0); Mean Corpuscular Hgb Conc. 32.2 g/dL (32.0-36.0); Mean Corpuscular Volume 82.6 fL (80.0-100.0); Platelet Count (auto) 231 10^3/uL (140-450); Red Blood Cells 3.29 10^6/uL (4.0-5.20); Red Cell Distribution Width 16.4 % (11.8-14.3); White Blood Cell 14.3 10^3/uL (4.4-10.8)
[2017-10-31 04:16] LABS: Blast Cells 0; Metamyelocytes % 0; Promyelocytes % 0; Reactive Lymphocytes 0
[2017-10-31 04:31] LABS: Albumin 2.9 g/dL (3.4-5.0); Bilirubin, Total 0.3 mg/dL (0.2-1.0); Calcium 8.5 mg/dL (8.5-10.1); Magnesium 2.2 mg/dL (1.6-2.6); Phosphorus 2.9 mg/dL (2.5-4.90); Total Protein 7.6 g/dL (6.4-8.2)
[2017-10-31] MEDS: MEROPENEM 1gm/20ml IVPUSH 20 ML IV SCH ×3 (04:59→21:21)
[2017-10-31 05:14] LABS: Band Neutrophils % (manual) 3; Basophils % (manual) 1 (0.0-2.0); Eosinophils % (manual) 1 (0-7); Lymphocytes % (manual) 11 (10.0-50.0); Monocytes % (manual) 13 (0-12); Myelocytes % 1
[2017-10-31] MEDS: GABAPENTIN 300 MG CAP PO SCH ×3 (06:03→21:33)
[2017-10-31] MEDS ORDERED: FUROSEMIDE 40 MG/4 ML VIAL IV ONE (09:15)
[2017-10-31] MEDS: ENOXAPARIN SOD 40 MG/0.4 ML SYRINGE SC SCH (09:42)
[2017-10-31] MEDS: FAMOTIDINE 20 MG TAB PO SCH ×2 (09:43→21:32)
[2017-10-31] MEDS: ASPirin 81 mg TAB PO SCH (09:43)
[2017-10-31] MEDS: SODIUM CHLOR 0.9% PF (SALINE LOCK) 10ML VIAL IV SCH ×2 (09:43→22:02)
[2017-10-31] MEDS: methylPREDNISolone SOD SUCC 125 MG/2 ML VL IV SCH ×3 (11:36→21:34)
[2017-10-31] MEDS: MIDAZOLAM HCL 1MG/1ML-2 ML VIAL IV PRN ×4 (11:37→19:54)
[2017-10-31] MEDS: diphenhdrAMINE HCL 50 MG/1 ML VL IV SCH ×3 (11:37→21:33)
[2017-10-31] MEDS: TOBRAMYCIN IV SCH (11:40)
[2017-10-31] MEDS: D5W 5% IV SCH (11:40)
[2017-10-31] MEDS: PROPOFOL 100 ML IV SCH (16:13)
[2017-10-31] MEDS: MIDAZOLAM DRIP 50 mg/50mL 50 ML IV SCH (16:13)
[2017-10-31] MEDS: AZITHROMYCIN 500MG/ 250ML 250 ML IV SCH (17:24)
[2017-10-31] MEDS: fentaNYL Drip 2500mCg/250mlNS 250 ML IV SCH (17:40)
[2017-10-31] MEDS: NOREPINEPHRINE 8 MG/250ML KIT 250 ML IV SCH (19:35)
[2017-10-31] MEDS ORDERED: TPN PER PHARMACY IV NR ×11 (20:00)
[2017-10-31] MEDS: ATORVASTATIN 20 MG TAB PO SCH (21:32)
[2017-10-31] MEDS: SERTRALINE HCL 50 MG TAB PO SCH (21:32)
[2017-11-01] VITALS (30 sets, daily range): BP systolic 117–158; BP diastolic 69–97
[2017-11-01] MEDS: ACCU-CHEK COMFORT CURVE STRIP VI SCH ×4 (00:14→17:41)
[2017-11-01] MEDS: FREE WATER GT SCH ×3 (00:14→13:15)
[2017-11-01] MEDS: InsuLIN REG 1unit/0.01ml Soln (100units/ml) SC SCH ×4 (00:15→17:40)
[2017-11-01] MEDS: VANCOMYCIN 1,250 MG in D5W 5% 250 ML IV SCH ×2 (00:36→11:49)
[2017-11-01] MEDS: MIDAZOLAM HCL 1MG/1ML-2 ML VIAL IV PRN ×2 (00:38→04:01)
[2017-11-01] MEDS: ACETAMINOPHEN 325 MG TAB PO PRN (02:48)
[2017-11-01 04:09] LABS: Hemoglobin 8.8 g/dL (12.2-16.2)
[2017-11-01 04:13] LABS: Hematocrit 27.2 % (36.0-46.0); Mean Corpuscular Hemoglobin 26.7 pg (28.0-32.0); Mean Corpuscular Hgb Conc. 32.3 g/dL (32.0-36.0); Mean Corpuscular Volume 82.6 fL (80.0-100.0); Platelet Count (auto) 288 10^3/uL (140-450); Red Cell Distribution Width 16.6 % (11.8-14.3); White Blood Cell 17.3 10^3/uL (4.4-10.8)
[2017-11-01 04:24] LABS: Basophils % (manual) 0 (0.0-2.0); Eosinophils % (manual) 0 (0-7); Promyelocytes % 0; Reactive Lymphocytes 0
[2017-11-01 04:25] LABS: Blast Cells 0
[2017-11-01 04:29] LABS: Calcium 9.1 mg/dL (8.5-10.1); Potassium 4.3 mmol/L (3.5-5.1)
[2017-11-01 04:32] LABS: Bilirubin, Total 0.3 mg/dL (0.2-1.0); Total Protein 8.1 g/dL (6.4-8.2)
[2017-11-01] MEDS: MEROPENEM 1gm/20ml IVPUSH 20 ML IV SCH ×3 (04:44→21:06)
[2017-11-01 04:53] LABS: Band Neutrophils % (manual) 8; Lymphocytes % (manual) 8 (10.0-50.0); Metamyelocytes % 3; Monocytes % (manual) 7 (0-12); Myelocytes % 1
[2017-11-01] MEDS: diphenhdrAMINE HCL 50 MG/1 ML VL IV SCH (06:44)
[2017-11-01] MEDS: methylPREDNISolone SOD SUCC 125 MG/2 ML VL IV SCH ×3 (06:44→21:44)
[2017-11-01] MEDS: GABAPENTIN 300 MG CAP PO SCH ×3 (06:44→21:42)
[2017-11-01] MEDS ORDERED: TEMAZEPAM 15 MG CAP PO PRN (07:30)
[2017-11-01] MEDS ORDERED: MORPHINE SULFATE 4 MG/ML SYR/VIAL IV PRN (07:30)
[2017-11-01] MEDS ORDERED: TOBRAMYCIN PER PHARMACY 0 ML IV SCH (07:30)
[2017-11-01] MEDS ORDERED: EPINEPHrine HCL 0.5 ML NEB ONE (08:31)
[2017-11-01 08:42] LABS: Magnesium 2.4 mg/dL (1.6-2.6); Phosphorus 3.6 mg/dL (2.5-4.90)
[2017-11-01] MEDS: SODIUM CHLOR 0.9% PF (SALINE LOCK) 10ML VIAL IV SCH ×2 (09:40→21:09)
[2017-11-01] MEDS: ASPirin 81 mg TAB PO SCH (09:45)
[2017-11-01] MEDS: FAMOTIDINE 20 MG TAB PO SCH ×2 (09:45→21:42)
[2017-11-01] MEDS: ENOXAPARIN SOD 40 MG/0.4 ML SYRINGE SC SCH (09:45)
[2017-11-01] MEDS ORDERED: MIDAZOLAM DRIP 50 mg/50mL 50 ML IV SCH (16:13)
[2017-11-01] MEDS ORDERED: fentaNYL Drip 2500mCg/250mlNS 250 ML IV SCH (17:40)
[2017-11-01] MEDS: AZITHROMYCIN 500MG/ 250ML 250 ML IV SCH (18:00)
[2017-11-01] MEDS ORDERED: TPN PER PHARMACY IV NR ×11 (20:00)
[2017-11-01] MEDS: SERTRALINE HCL 50 MG TAB PO SCH (21:43)
[2017-11-01] MEDS: ATORVASTATIN 20 MG TAB PO SCH (21:43)
[2017-11-01] MEDS: D5W 5% IV SCH (23:18)
[2017-11-01] MEDS: TOBRAMYCIN IV SCH (23:18)
[2017-11-02 05:00] VITALS: BP 125/80
[2017-11-02] MEDS: MEROPENEM 1gm/20ml IVPUSH 20 ML IV SCH ×3 (05:00→21:00)
[2017-11-02] MEDS: methylPREDNISolone SOD SUCC 125 MG/2 ML VL IV SCH ×3 (06:06→21:57)
[2017-11-02] MEDS: GABAPENTIN 300 MG CAP PO SCH ×3 (06:06→21:59)
[2017-11-02] MEDS: ACCU-CHEK COMFORT CURVE STRIP VI SCH ×4 (06:06→18:00)
[2017-11-02] MEDS: InsuLIN REG 1unit/0.01ml Soln (100units/ml) SC SCH ×4 (06:06→18:00)
[2017-11-02 06:17] LABS: Hemoglobin 8.5 g/dL (12.2-16.2); Mean Corpuscular Hgb Conc. 31.6 g/dL (32.0-36.0)
[2017-11-02 06:18] LABS: Mean Corpuscular Hemoglobin 26.3 pg (28.0-32.0); Mean Corpuscular Volume 83.2 fL (80.0-100.0); Platelet Count (auto) 330 10^3/uL (140-450); Red Blood Cells 3.25 10^6/uL (4.0-5.20); Red Cell Distribution Width 16.6 % (11.8-14.3)
[2017-11-02 06:30] LABS: Basophils % (manual) 0 (0.0-2.0); Blast Cells 0; Metamyelocytes % 0; Myelocytes % 0; Promyelocytes % 0; Reactive Lymphocytes 0
[2017-11-02 06:57] LABS: Bilirubin, Total 0.4 mg/dL (0.2-1.0); Calcium 7.8 mg/dL (8.5-10.1); Magnesium 2.5 mg/dL (1.6-2.6); Phosphorus 3.8 mg/dL (2.5-4.90); Potassium 4.1 mmol/L (3.5-5.1); Total Protein 7.7 g/dL (6.4-8.2)
[2017-11-02 09:00] VITALS: BP 120/79
[2017-11-02] MEDS: FAMOTIDINE 20 MG TAB PO SCH ×2 (10:51→21:58)
[2017-11-02] MEDS: ASPirin 81 mg TAB PO SCH (10:51)
[2017-11-02] MEDS: ENOXAPARIN SOD 40 MG/0.4 ML SYRINGE SC SCH (10:51)
[2017-11-02] MEDS: LEVOFLOXACIN 500MG 100 ML IV SCH (11:11)
[2017-11-02 11:19] LABS: Band Neutrophils % (manual) 6; Eosinophils % (manual) 1 (0-7); Lymphocytes % (manual) 19 (10.0-50.0); Monocytes % (manual) 4 (0-12)
[2017-11-02] MEDS: VANCOMYCIN 1,250 MG in D5W 5% 250 ML IV SCH ×3 (12:00)
[2017-11-02 13:00] VITALS: BP 124/74
[2017-11-02] MEDS: SODIUM CHLOR 0.9% PF (SALINE LOCK) 10ML VIAL IV SCH ×2 (14:44→21:59)
[2017-11-02 16:50] VITALS: BP 119/74
[2017-11-02] MEDS: MORPHINE SULFATE 4 MG/ML SYR/VIAL IV PRN (20:07)
[2017-11-02] MEDS: ATORVASTATIN 20 MG TAB PO SCH (21:58)
[2017-11-02] MEDS: SERTRALINE HCL 50 MG TAB PO SCH (21:59)
[2017-11-02 22:16] VITALS: BP 131/81
[2017-11-03] MEDS: MEROPENEM 1gm/20ml IVPUSH 20 ML IV SCH ×3 (05:00→20:31)
[2017-11-03 05:20] VITALS: BP 144/84
[2017-11-03] MEDS: methylPREDNISolone SOD SUCC 125 MG/2 ML VL IV SCH ×3 (05:56→22:05)
[2017-11-03] MEDS: GABAPENTIN 300 MG CAP PO SCH ×3 (05:56→22:04)
[2017-11-03] MEDS: ACCU-CHEK COMFORT CURVE STRIP VI SCH ×4 (05:56→17:38)
[2017-11-03] MEDS: InsuLIN REG 1unit/0.01ml Soln (100units/ml) SC SCH ×4 (05:57→17:38)
[2017-11-03 06:16] LABS: Basophils # (auto) 0 uL; Eosinophils # (auto) 0 uL
[2017-11-03 06:19] LABS: Basophils % (auto) 0.2 % (0.0-2.0); Hematocrit 28.6 % (36.0-46.0); Hemoglobin 9.2 g/dL (12.2-16.2); Lymphocytes # (auto) 1.6 uL; Lymphocytes % (auto) 10.2 % (10.0-50.0); Mean Corpuscular Hemoglobin 26.7 pg (28.0-32.0); Mean Corpuscular Volume 83.4 fL (80.0-100.0); Monocytes % (auto) 6.1 % (0.0-12.0); Neutrophils # (auto) 13.5 uL; Neutrophils % (auto) 83.5 % (37.0-80.0); Nucleated Red Blood Cells % 0.1 %; Platelet Count (auto) 300 10^3/uL (140-450); Red Blood Cells 3.43 10^6/uL (4.0-5.20); Red Cell Distribution Width 16.9 % (11.8-14.3); White Blood Cell 16.1 10^3/uL (4.4-10.8)
[2017-11-03 06:23] LABS: Albumin 3.3 g/dL (3.4-5.0); BUN/Creatinine Ratio 39.1; Bilirubin, Total 0.4 mg/dL (0.2-1.0); Calcium 8.4 mg/dL (8.5-10.1); Potassium 4.3 mmol/L (3.5-5.1)
[2017-11-03] MEDS: HYDROcodone-ACET 5/325MG TAB PO PRN (06:47)
[2017-11-03 09:00] VITALS: BP 138/98
[2017-11-03] MEDS: FAMOTIDINE 20 MG TAB PO SCH ×2 (09:53→22:04)
[2017-11-03] MEDS: LEVOFLOXACIN 500MG 100 ML IV SCH (09:53)
[2017-11-03] MEDS: ASPirin 81 mg TAB PO SCH (09:53)
[2017-11-03] MEDS: ENOXAPARIN SOD 40 MG/0.4 ML SYRINGE SC SCH (09:53)
[2017-11-03] MEDS: SODIUM CHLOR 0.9% PF (SALINE LOCK) 10ML VIAL IV SCH ×2 (09:54→22:05)
[2017-11-03] MEDS: VANCOMYCIN 1,250 MG in D5W 5% 250 ML IV SCH ×3 (11:46)
[2017-11-03 13:00] VITALS: BP 137/76
[2017-11-03] MEDS: Boost Glucose Control 8 Ounces PO SCH (18:00)
[2017-11-03 18:27] VITALS: BP 124/84
[2017-11-03 19:35] VITALS: BP 117/54
[2017-11-03] MEDS: SERTRALINE HCL 50 MG TAB PO SCH (22:04)
[2017-11-03] MEDS: ATORVASTATIN 20 MG TAB PO SCH (22:04)
[2017-11-03] MEDS: MORPHINE SULFATE 4 MG/ML SYR/VIAL IV PRN (23:20)
[2017-11-04] MEDS ORDERED: D5W 5% IV SCH ×2
[2017-11-04] MEDS ORDERED: TOBRAMYCIN IV SCH ×2
[2017-11-04] MEDS: VANCOMYCIN 1,250 MG in D5W 5% 250 ML IV SCH (00:27)
[2017-11-04] MEDS: ACCU-CHEK COMFORT CURVE STRIP VI SCH ×5 (00:36→23:40)
[2017-11-04] MEDS: InsuLIN REG 1unit/0.01ml Soln (100units/ml) SC SCH ×5 (00:40→23:40)
[2017-11-04] MEDS: MEROPENEM 1gm/20ml IVPUSH 20 ML IV SCH (05:45)
[2017-11-04] MEDS: methylPREDNISolone SOD SUCC 125 MG/2 ML VL IV SCH ×3 (06:10→21:59)
[2017-11-04] MEDS: GABAPENTIN 300 MG CAP PO SCH ×3 (06:10→21:59)
[2017-11-04 06:51] LABS: Basophils # (auto) 0 uL; Basophils % (auto) 0.1 % (0.0-2.0); Eosinophils # (auto) 0 uL; Lymphocytes # (auto) 2.3 uL
[2017-11-04 07:01] LABS: Hemoglobin 9.6 g/dL (12.2-16.2); Lymphocytes % (auto) 12.1 % (10.0-50.0); Mean Corpuscular Hemoglobin 25.9 pg (28.0-32.0); Mean Corpuscular Volume 83.5 fL (80.0-100.0); Monocytes # (auto) 1.4 uL; Monocytes % (auto) 7.2 % (0.0-12.0); Neutrophils # (auto) 15.2 uL; Neutrophils % (auto) 80.6 % (37.0-80.0); Platelet Count (auto) 396 10^3/uL (140-450); Potassium 4.5 mmol/L (3.5-5.1); Red Blood Cells 3.72 10^6/uL (4.0-5.20); Red Cell Distribution Width 16.7 % (11.8-14.3); White Blood Cell 18.9 10^3/uL (4.4-10.8)
[2017-11-04 07:09] LABS: BUN/Creatinine Ratio 40.5; Calcium 8.8 mg/dL (8.5-10.1)
[2017-11-04 09:00] VITALS: BP 134/91
[2017-11-04] MEDS: LEVOFLOXACIN 500MG 100 ML IV SCH (11:52)
[2017-11-04] MEDS: ENOXAPARIN SOD 40 MG/0.4 ML SYRINGE SC SCH (11:53)
[2017-11-04] MEDS: ASPirin 81 mg TAB PO SCH (11:53)
[2017-11-04] MEDS: FAMOTIDINE 20 MG TAB PO SCH ×2 (11:53→22:00)
[2017-11-04] MEDS: Boost Glucose Control 8 Ounces PO SCH ×3 (11:53→18:58)
[2017-11-04] MEDS: SODIUM CHLOR 0.9% PF (SALINE LOCK) 10ML VIAL IV SCH ×2 (11:54→22:00)
[2017-11-04 14:17] VITALS: BP 130/81
[2017-11-04 18:16] VITALS: BP 129/79
[2017-11-04] MEDS: HYDROcodone-ACET 5/325MG TAB PO PRN (19:47)
[2017-11-04] MEDS: ATORVASTATIN 20 MG TAB PO SCH (21:59)
[2017-11-04 22:00] VITALS: BP 128/73
[2017-11-04] MEDS: SERTRALINE HCL 50 MG TAB PO SCH (22:00)
[2017-11-05 05:42] VITALS: BP 126/76
[2017-11-05] MEDS: methylPREDNISolone SOD SUCC 125 MG/2 ML VL IV SCH ×3 (06:07→21:17)
[2017-11-05] MEDS: GABAPENTIN 300 MG CAP PO SCH ×3 (06:07→21:14)
[2017-11-05] MEDS: ACCU-CHEK COMFORT CURVE STRIP VI SCH ×3 (06:08→17:09)
[2017-11-05 06:29] LABS: Basophils # (auto) 0 uL; Eosinophils # (auto) 0 uL; Lymphocytes # (auto) 1.8 uL; Mean Corpuscular Volume 83.7 fL (80.0-100.0)
[2017-11-05] MEDS: InsuLIN REG 1unit/0.01ml Soln (100units/ml) SC SCH ×3 (06:39→17:10)
[2017-11-05 06:40] LABS: Basophils % (auto) 0.3 % (0.0-2.0); Eosinophils % (auto) 0.1 % (0.0-7.0); Hematocrit 31.6 % (36.0-46.0); Hemoglobin 9.8 g/dL (12.2-16.2); Lymphocytes % (auto) 11.1 % (10.0-50.0); Mean Corpuscular Hgb Conc. 31.1 g/dL (32.0-36.0); Monocytes % (auto) 6.2 % (0.0-12.0); Neutrophils # (auto) 13.2 uL; Neutrophils % (auto) 82.3 % (37.0-80.0); Platelet Count (auto) 428 10^3/uL (140-450); Red Blood Cells 3.78 10^6/uL (4.0-5.20); Red Cell Distribution Width 16.9 % (11.8-14.3)
[2017-11-05 06:43] LABS: Mean Corpuscular Hemoglobin 26.4 pg (28.0-32.0)
[2017-11-05 06:52] LABS: Albumin 3.2 g/dL (3.4-5.0); Calcium 8.7 mg/dL (8.5-10.1); Potassium 4.7 mmol/L (3.5-5.1)
[2017-11-05 06:57] LABS: Bilirubin, Total 0.4 mg/dL (0.2-1.0); Total Protein 7.6 g/dL (6.4-8.2)
[2017-11-05 09:00] VITALS: BP 135/80
[2017-11-05] MEDS: FAMOTIDINE 20 MG TAB PO SCH ×2 (10:06→21:13)
[2017-11-05] MEDS: ASPirin 81 mg TAB PO SCH (10:07)
[2017-11-05] MEDS: ENOXAPARIN SOD 40 MG/0.4 ML SYRINGE SC SCH (10:07)
[2017-11-05] MEDS: SODIUM CHLOR 0.9% PF (SALINE LOCK) 10ML VIAL IV SCH ×2 (10:07→21:17)
[2017-11-05] MEDS: LEVOFLOXACIN 500MG 100 ML IV SCH (10:07)
[2017-11-05] MEDS: Boost Glucose Control 8 Ounces PO SCH ×3 (10:08→18:10)
[2017-11-05 13:00] VITALS: BP 115/79
[2017-11-05 17:00] VITALS: BP 147/97
[2017-11-05] MEDS: SERTRALINE HCL 50 MG TAB PO SCH (21:13)
[2017-11-05] MEDS: ATORVASTATIN 20 MG TAB PO SCH (21:14)
[2017-11-05] MEDS: HYDROcodone-ACET 5/325MG TAB PO PRN (21:18)
[2017-11-05] MEDS: ACETAMINOPHEN 325 MG TAB PO PRN (21:18)
[2017-11-05 21:56] VITALS: BP 138/81
[2017-11-06] MEDS: ACCU-CHEK COMFORT CURVE STRIP VI SCH ×3 (00:40→11:46)
[2017-11-06] MEDS: InsuLIN REG 1unit/0.01ml Soln (100units/ml) SC SCH ×3 (00:41→11:46)
[2017-11-06 05:46] VITALS: BP 147/96
[2017-11-06] MEDS: methylPREDNISolone SOD SUCC 125 MG/2 ML VL IV SCH ×2 (06:20→15:25)
[2017-11-06] MEDS: GABAPENTIN 300 MG CAP PO SCH ×2 (06:20→15:26)
[2017-11-06 07:51] LABS: Basophils # (auto) 0 uL; Basophils % (auto) 0.1 % (0.0-2.0); Eosinophils # (auto) 0 uL; Hemoglobin 10.7 g/dL (12.2-16.2); Lymphocytes # (auto) 1.6 uL; Monocytes # (auto) 0.7 uL; Neutrophils # (auto) 11.5 uL; White Blood Cell 13.8 10^3/uL (4.4-10.8)
[2017-11-06 07:53] LABS: Eosinophils % (auto) 0.1 % (0.0-7.0); Lymphocytes % (auto) 11.4 % (10.0-50.0); Mean Corpuscular Hgb Conc. 31.4 g/dL (32.0-36.0); Monocytes % (auto) 5.3 % (0.0-12.0); Neutrophils % (auto) 83.1 % (37.0-80.0); Nucleated Red Blood Cells % 0.1 %; Platelet Count (auto) 456 10^3/uL (140-450); Red Cell Distribution Width 16.9 % (11.8-14.3)
[2017-11-06 09:00] VITALS: BP 147/98
[2017-11-06] MEDS: LEVOFLOXACIN 500MG 100 ML IV SCH (09:59)
[2017-11-06] MEDS: ENOXAPARIN SOD 40 MG/0.4 ML SYRINGE SC SCH (10:00)
[2017-11-06] MEDS: ASPirin 81 mg TAB PO SCH (10:00)
[2017-11-06] MEDS: FAMOTIDINE 20 MG TAB PO SCH (10:00)
[2017-11-06] MEDS: SODIUM CHLOR 0.9% PF (SALINE LOCK) 10ML VIAL IV SCH (10:02)
[2017-11-06] MEDS: Boost Glucose Control 8 Ounces PO SCH ×2 (10:06→15:25)
[2017-11-06 10:09] LABS: BUN/Creatinine Ratio 40.4; Calcium 8.6 mg/dL (8.5-10.1)
[2017-11-06 12:08] LABS: Potassium 4.5 mmol/L (3.5-5.1)
[2017-11-06 13:00] VITALS: BP 153/87
== END 2017-11-06 18:00 | disposition home health service (06) | DRG 130 ==
LOC: ER 21:06 → TELE 21:07 → TELE-CENTR 10-22 16:59 → DOU IN ICU 10-23 13:32 → ICU WEST 10-23 16:50 → TELE-WESTW 11-01 22:55
PROVIDERS: ADMIT Nurse Practitioner; ATTEND Internal Medicine
PROC: 5A1955Z Respiratory Ventilation, Greater than 96 Consecutive Hours (ICD-10-PCS; principal; 2017-10-23)
PROC: 0BH17EZ Insertion of Endotracheal Airway into Trachea, Via Natural or Artificial Opening (ICD-10-PCS; 2017-10-23)
PROC: 5A09357 Assistance with Respiratory Ventilation, Less than 24 Consecutive Hours, Continuous Positive Airway Pressure (ICD-10-PCS; 2017-10-23)
PROC: 02HV33Z Insertion of Infusion Device into Superior Vena Cava, Percutaneous Approach (ICD-10-PCS; 2017-10-30)
DX: J15.7 Pneumonia due to Mycoplasma pneumoniae (principal); N17.9 Acute kidney failure, unspecified; E44.0 Moderate protein-calorie malnutrition; I95.9 Hypotension, unspecified; Z68.42 Body mass index [BMI] 45.0-49.9, adult; I11.9 Hypertensive heart disease without heart failure; I69.354 Hemiplegia and hemiparesis following cerebral infarction affecting left non-dominant side; J45.901 Unspecified asthma with (acute) exacerbation; J96.02 Acute respiratory failure with hypercapnia; J96.01 Acute respiratory failure with hypoxia; E66.01 Morbid (severe) obesity due to excess calories; G47.00 Insomnia, unspecified; E11.9 Type 2 diabetes mellitus without complications; E78.5 Hyperlipidemia, unspecified; I34.0 Nonrheumatic mitral (valve) insufficiency; Z99.11 Dependence on respirator [ventilator] status; Z86.711 Personal history of pulmonary embolism
CPT/HCPCS: 36415; 36569; 36600; 70450; 71045; 71046; 71250; 71275; 80048; 80053; 80200; 80202; 81001; 81025; 82040; 82805; 82962; 83735; 83880; 84100; 84478; 84484; 85007; 85025; 85027; 85379; 85610; 85652; 86738; 87040; 87070; 87081; 87086; 87205; 87493; 87804; 93005; 93306; 94002; 94003; 94640; 94644; 96361; 96365; 96367; 96372; 96375; 96379; 97163; J1815; J1956; J2250; J2405; J2543; J2704; J3480; J7060; J7131